=== PATIENT | female | born 1985 | race Two or more races ===

== ENCOUNTER 2023-04-17 20:33 | Emergency (ER) | payer MEDICAID ==
[~2023-04-17] VITALS: Ht 157.5 cm; Wt 80.8 kg
[2023-04-17 20:57] VITALS: BP 125/75
[2023-04-17 23:04] LABS: COVID19 ANTIGEN SOFIA FIA NEGATIVE (NEGATIVE); Rapid Influenza A Negative (Negative); Rapid Influenza B Negative (Negative)
[2023-04-17 23:09] VITALS: PULSE 118; RESP 18; TEMP 101.7
[2023-04-17] MEDS ORDERED: ACET500T58 PO ×3 (23:13→23:59)
[2023-04-17] MEDS ORDERED: AMOX875T4 PO ×3 (23:13→23:59)
[2023-04-17] MEDS ORDERED: ZOFR4T PO ×3 (23:13→23:59)
[2023-04-17] MEDS ORDERED: ACETAMINOPHEN 325 MG TAB PO ONE (23:15)
[2023-04-17 23:43] VITALS: O2SAT 97
== END 2023-04-18 | disposition home or self-care (01) ==
LOC: ER 20:33
DX: J06.9 Acute upper respiratory infection, unspecified (principal); Z20.822 Contact with and (suspected) exposure to COVID-19
CPT/HCPCS: 36415; 87426; 87804